=== PATIENT | female | born 1970 | race American Indian/Alaskan Native ===

== ENCOUNTER 2021-01-10 06:16 | Emergency (ER) | payer BC ==
[2021-01-10] MEDS ORDERED: FAMOTIDINE 20 MG/2 ML INJ IV NR (06:45)
[2021-01-10] MEDS ORDERED: methylPREDNISolone Sod Succinate 125 MG/2 ML INJ IV NR (06:45)
[2021-01-10] MEDS ORDERED: diphenhydrAMINE 50 MG/ML VIAL IV NR (06:45)
--- NOTE | 2021-01-10 06:48 | Emergency Department Report ---
HPI - General Chief Complaint: Allergic Reaction Time Seen by Provider: 01/10/21 06:36 - HPI HPI: 50-year-old -[place] female presents to the emergency department with a complaint of itching all over that started about 1 hour ago. The patient took a Robaxin and diclofenac around midnight this evening. She woke up this morning and went to take a shower and initially says that she felt as if she was going to pass out. She started to improve from that but then began to have this whole body itching. She denies any swelling of the lips or tongue, swelling of the throat, difficulty swallowing, shortness of breath, chest pain, fever. Patient has taken these medications previously and has never had a reaction before. Otherwise she does not know what she may have had an allergic reaction to. She did not take anything for symptoms prior to presentation today. ED Past Medical Hx - Past Medical History Previous Medical History?: No - Surgical History Past Surgical History?: No - Medications Home Medications: Home Medications Medication Instructions Recorded Confirmed Last Taken Type EPINEPHrine [Epipen] 0.3 mg IJ ONCE PRN #1 auto.injct 01/10/21 Unknown Rx Famotidine [Pepcid] 20 mg PO BID #6 tablet 01/10/21 Unknown Rx predniSONE [Deltasone] 20 mg PO BID #6 tab 01/10/21 Unknown Rx ED Review of Systems ROS: Stated complaint: ITCHING POSS ALERGIC REACTION Other details as noted in HPI Comment: All other systems reviewed and negative Constitutional: denies: chills, fever Eyes: denies: eye pain, vision change ENT: denies: ear pain, throat pain Respiratory: denies: cough, shortness of breath Cardiovascular: denies: chest pain, palpitations Gastrointestinal: denies: abdominal pain, vomiting Genitourinary: denies: dysuria, discharge Musculoskeletal: denies: back pain, arthralgia Skin: pruritus. denies: rash Neurological: denies: headache, weakness Physical Exam - Physical Exam Vital Signs: Vital Signs 01/10/21 06:27 Temperature 97.4 F L Pulse Rate 94 H Respiratory 18 Rate Blood Pressure 154/87 O2 Sat by Pulse 97 Oximetry Physical Exam: GENERAL: The patient is well-developed well-nourished. HENT: Normocephalic. Atraumatic. Patient has moist mucous membranes. Oropharynx is clear. No drooling or trismus. No swelling of the tongue. EYES: Extraocular motions are intact. NECK: Supple. Trachea is midline. CHEST/LUNGS: Clear to auscultation. There is no respiratory distress noted. HEART/CARDIOVASCULAR: Regular. There is no tachycardia. There is no murmur. ABDOMEN: Abdomen is soft, nontender. Patient has normal bowel sounds. SKIN: Skin is warm and dry. Patient has multiple excoriations to the extremities as she is seen actively scratching herself. NEURO: The patient is awake, alert, and oriented. The patient is cooperative. The patient has no focal neurologic deficits. Normal speech. MUSCULOSKELETAL: There is no tenderness or deformity. There is no limitation range of motion. ED Course Vital Signs 01/10/21 06:27 Temperature 97.4 F L Pulse Rate 94 H Respiratory 18 Rate Blood Pressure 154/87 O2 Sat by Pulse 97 Oximetry - Reevaluation(s) Reevaluation #1: 01/10/21 07:56 The patient says that she is feeling much better in terms of the whole body itching. She does feel like there is some itching to the throat and that she has to clear her throat. She will be given the subcutaneous epinephrine shot and we will continue to monitor. ED Medical Decision Making - Medical Decision Making Initially this patient presented with a complaint of whole body pruritus that appeared consistent with an allergic reaction. She was given Benadryl, site Medrol, Pepcid. The patient was reevaluated she said that she felt as if she had some itchiness or inflammation to her throat. For this reason the patient was also given subcutaneous epi with the dose of an EpiPen. The patient was reevaluated multiple times over multiple hours and says she is feeling greatly improved. There has been no angioedema of the lips, tongue, throat, drooling or trismus, shortness of breath. Vital signs have been reassuring including being afebrile. The patient's pruritus seems to have currently resolved. For these reasons patient appears safe for discharge home at this time. We do not know with the allergen was at the patient understands that there could be a rebound effect. She has been given a 3-day course of steroids and Pepcid, and she will use [id number] Benadryl as needed. The patient is also been given an EpiPen. She will follow up with primary care and will return to the ER with any worsening or symptoms or with any acute distress. Critical Care Time: No Critical care attestation.: If time is entered above; I have spent that time in minutes in the direct care of this critically ill patient, excluding procedure time. ED Disposition Clinical Impression: Pruritic condition Allergic reaction Qualifiers: Encounter type: initial encounter Qualified Code(s): T78.40XA - Allergy, unspecified, initial encounter Disposition: HOME / SELF CARE / HOMELESS Is pt being admited?: No Condition: Stable Instructions: Pruritus, How to Use an Auto-Injector Pen, Allergies, Adult Additional Instructions: Please follow-up with your primary care physician in the next few days. I am giving you a prescription for steroids, Pepcid, and you can use [id number] Benadryl. I am also giving you a prescription for an EpiPen. The EpiPen should be used if you have an allergic reaction causing you to have swelling of your tongue or throat, difficulty swallowing, or any signs/symptoms of anaphylaxis. If you have to use the EpiPen, call 911 and get to the closest emergency department immediately afterwards. Return to the emergency department with any worsening of your symptoms, new or concerning symptoms not addressed during this current emergency department visit, or with any acute distress. Prescriptions: predniSONE [Deltasone] 20 mg PO BID #6 tab EPINEPHrine [Epipen] 0.3 mg IJ ONCE PRN #1 auto.injct PRN Reason: Anaphylaxis Famotidine [Pepcid] 20 mg PO BID #6 tablet Referrals: PRIMARY CARE [Primary Care Provider] - 2-3 Days Time of Disposition: 10:22
[2021-01-10] MEDS ORDERED: methylPREDNISolone Sod Succinate 125 MG/2 ML INJ ONE (07:00)
[2021-01-10] MEDS ORDERED: EPINEPHrine/PF 1 MG/1 ML INJ SUB-Q ONE (07:56)
[2021-01-10 10:16] VITALS: BP 143/77
== END 2021-01-10 10:26 | disposition home or self-care (01) ==
LOC: ED 06:16
DX: L29.9 Pruritus, unspecified (principal); T78.40XA Allergy, unspecified, initial encounter; X58.XXXA Exposure to other specified factors, initial encounter
CPT/HCPCS: 96372; 96374; 96375; 99282; J0171; J1200; J2930

== ENCOUNTER 2021-09-21 08:00 | Emergency (ER) | payer BC ==
[2021-09-21 08:11] VITALS: BP 140/57
[2021-09-21] MEDS ORDERED: diphenhydrAMINE 50 MG/ML VIAL IV ONE (08:40)
[2021-09-21] MEDS ORDERED: METOCLOPRAMIDE 10 MG/2 ML INJ IV ONE (08:40)
[2021-09-21] MEDS ORDERED: dexAMETHasone 20 MG/5 ML VIAL IV ONE (08:40)
--- NOTE | 2021-09-21 09:09 | Emergency Department Report ---
ED General Adult HPI - General Chief complaint: Allergic Reaction Stated complaint: ALLERGIC REACTION Time Seen by Provider: 09/21/21 08:39 Source: patient Mode of arrival: Ambulatory Limitations: No Limitations - History of Present Illness Initial comments: Is a 51-year-old female who presents for allergic reaction. Patient states she took diclofenac last night and awoke him this morning about 5 AM with itching throat swelling. Patient took EpiPen and Benadryl. Symptoms have decreased to 4/10 at this time. Patient drove self to ED patient is alert oriented x3 speaking in full sentences. No shortness of breath no chest pain no nausea no vomiting no lightheadedness or dizziness. Patient appears nontoxic in no acute distress. There are no other exacerbating symptoms. Primary complaint at this time is itching.. - Related Data Previous Rx's Medication Instructions Recorded Last Taken Type EPINEPHrine [Epipen] 0.3 mg IJ ONCE PRN #1 auto.injct 01/10/21 Unknown Rx Famotidine [Pepcid] 20 mg PO BID #6 tablet 01/10/21 Unknown Rx predniSONE [Deltasone] 20 mg PO BID #6 tab 01/10/21 Unknown Rx EPINEPHrine [Epipen 2-Keshav] 0.3 mg IM PRN PRN #1 each 09/21/21 Unknown Rx Famotidine [Pepcid] 20 mg PO BID 7 Days #15 tablet 09/21/21 Unknown Rx diphenhydrAMINE [Benadryl CAP] 25 mg PO Q8HR PRN 7 Days #30 09/21/21 Unknown Rx capsule predniSONE [Deltasone] 410 mg PO DAILY 5 Days #10 tab 09/21/21 Unknown Rx Allergies Allergy/AdvReac Type Severity Reaction Status Date / Time No Known Allergies Allergy Unverified 01/10/21 06:54 ED Review of Systems ROS: Stated complaint: ALLERGIC REACTION Other details as noted in HPI Constitutional: denies: chills, fever Eyes: denies: eye pain, eye discharge, vision change ENT: denies: ear pain, throat pain Respiratory: denies: cough, shortness of breath, wheezing Cardiovascular: denies: chest pain, palpitations Endocrine: no symptoms reported Gastrointestinal: as per HPI Genitourinary: denies: urgency, dysuria, discharge Musculoskeletal: denies: back pain, joint swelling, arthralgia Skin: pruritus Neurological: denies: headache, weakness, paresthesias, vertigo Psychiatric: denies: anxiety, depression Hematological/Lymphatic: as per HPI ED Past Medical Hx - Medications Home Medications: Home Medications Medication Instructions Recorded Confirmed Last Taken Type EPINEPHrine [Epipen] 0.3 mg IJ ONCE PRN #1 auto.injct 01/10/21 Unknown Rx Famotidine [Pepcid] 20 mg PO BID #6 tablet 01/10/21 Unknown Rx predniSONE [Deltasone] 20 mg PO BID #6 tab 01/10/21 Unknown Rx EPINEPHrine [Epipen 2-Keshav] 0.3 mg IM PRN PRN #1 each 09/21/21 Unknown Rx Famotidine [Pepcid] 20 mg PO BID 7 Days #15 tablet 09/21/21 Unknown Rx diphenhydrAMINE [Benadryl CAP] 25 mg PO Q8HR PRN 7 Days #30 09/21/21 Unknown Rx capsule predniSONE [Deltasone] 410 mg PO DAILY 5 Days #10 tab 09/21/21 Unknown Rx ED Physical Exam - General Limitations: No Limitations General appearance: alert, in no apparent distress - Head Head exam: Present: normocephalic, normal inspection - Eye Eye exam: Present: PERRL, EOMI Pupils: Present: normal accommodation - ENT ENT exam: Present: normal orophraynx, mucous membranes moist, TM's normal b ilaterally, normal external ear exam - Expanded ENT Exam Expanded Throat exam: Positive: normal inspection, other (Uvula is midline no lesions no exudate airway is patent no stridor or wheezing). Negative: tonsillar erythema, tonsillomegaly, tonsillar exudate, R peritonsillar mass, L peritonsillar mass - Neck Neck exam: Present: normal inspection, full ROM. Absent: tenderness, lymphadenopathy - Respiratory Respiratory exam: Present: normal lung sounds bilaterally. Absent: respiratory distress, wheezes, stridor - Cardiovascular Cardiovascular Exam: Present: regular rate, normal rhythm, normal heart sounds. Absent: systolic murmur, diastolic murmur, rubs, gallop - GI/Abdominal GI/Abdominal exam: Present: soft, normal bowel sounds. Absent: distended, tenderness - Rectal Rectal exam: Present: deferred - Extremities Exam Extremities exam: Present: normal inspection, full ROM, normal capillary refill - Back Exam Back exam: Present: normal inspection, full ROM. Absent: CVA tenderness (R), CVA tenderness (L) - Neurological Exam Neurological exam: Present: alert, oriented X3, CN II-XII intact, normal gait - Expanded Neurological Exam Expanded Patient oriented to: Present: person, place, time Speech: Present: fluid speech Cranial nerves: EOM's Intact: Normal, Gag Reflex: Normal, Tongue Deviation: Normal, Nystagmus: Normal Best Eye Response (Teddy): (4) open spontaneously Best Motor Response (Teddy): (6) obeys commands Best Verbal Response (Teddy): (5) oriented Teddy Total: 15 - Psychiatric Psychiatric exam: Present: normal affect, normal mood - Skin Skin exam: Present: warm, dry, intact, normal color. Absent: rash ED Course Vital Signs 09/21/21 08:10 Temperature 98.2 F Pulse Rate 82 Respiratory 16 Rate Blood Pressure 140/57 [Left] O2 Sat by Pulse 95 Oximetry ED Medical Decision Making - Medical Decision Making Airway is patent there is no swelling uvula midline no stridor no exudate no wheezing respirations are even and nonlabored lung sounds are clear throughout. There is no chest pain no nausea no vomiting no dizziness or lightheadedness. There is no rash no hives no lesions. Symptoms are improved with medications given in ED plan refill EpiPen, Benadryl, prednisone burst, follow-up with primary care doctor in 2 to 3 days. Patient verbalized agreement and understanding with discharge plan. Patient will be DC'd home in stable condition at this time. Critical care attestation.: If time is entered above; I have spent that time in minutes in the direct care of this critically ill patient, excluding procedure time. ED Disposition Clinical Impression: Allergic reaction Qualifiers: Encounter type: initial encounter Qualified Code(s): T78.40XA - Allergy, unspecified, initial encounter Disposition: HOME / SELF CARE / HOMELESS Is pt being admited?: No Does the pt Need Aspirin: No Condition: Stable Instructions: Allergies, Adult, [id number], How to Use an Auto-Injector Pen Additional Instructions: Take medications as prescribed, follow-up with your doctor in 2 to 3 days. Return to emergency department should symptoms worsen. Prescriptions: diphenhydrAMINE [Benadryl CAP] 25 mg PO Q8HR PRN 7 Days #30 capsule PRN Reason: allergies itching predniSONE [Deltasone] 410 mg PO DAILY 5 Days #10 tab EPINEPHrine [Epipen 2-Keshav] 0.3 mg IM PRN PRN #1 each PRN Reason: sever allergy symptoms Famotidine [Pepcid] 20 mg PO BID 7 Days #15 tablet Referrals: ARBEN PEREZ MD [Staff Physician] - 3-5 Days Forms: Work/School Release Form(ED) Time of Disposition: 09:13
== END 2021-09-21 09:46 | disposition home or self-care (01) ==
LOC: ED 08:00
DX: T78.40XA Allergy, unspecified, initial encounter (principal); X58.XXXA Exposure to other specified factors, initial encounter
CPT/HCPCS: 96374; 96375; 99282; J1100; J1200; J2765